=== PATIENT | female | born 1965 | race Caucasian/White ===

== ENCOUNTER → 2018-12-26 | Outpatient (CLI) | payer OTHER ==
[~2018-12-26] MED LIST: AMITRIPTYLINE H25 MG PO; ASPIRIN81 MG PO; ATENOLOL50 MG PO; CRESTOR10 MG PO; ESTRADIOL1 MG PO; GRALISE600 MG PO; LEVOTHYROXINE50 MCG PO; PANTOPRAZOLE SO40 MG PO; TRIAMTERENE/HCTZ PO; ULTRAM50 MG PO; ZOMIG2.5 MG PO; ZYRTEC10 M3 PO
[2018-12-26 10:47] LABS: ANION GAP 13.5 mmol/L (8-16); BLOOD UREA NITROGEN 11 mg/dL (7-26); BUN/CREATININE RATIO 13 (6-25); CALCIUM 9.4 mg/dL (8.4-10.2); CARBON DIOXIDE 29 mmol/L (22-29); CHLORIDE 98 mmol/L (98-107); CREATININE, SERUM 0.82 mg/dL (0.57-1.11); EST GLOMERULAR FILTRATION RATE > 60 ML/MIN (60-); GLUCOSE 95 mg/dL (74-118); POTASSIUM 3.5 mmol/L (3.5-5.1); SODIUM 137 mmol/L (136-145)
== END ==
LOC: RAD 05:00 → EDSTATUS 12-31 11:00
PROVIDERS: ATTEND Podiatrist Foot & Ankle Surgery
DX: Z01.810 Encounter for preprocedural cardiovascular examination (principal); Z01.812 Encounter for preprocedural laboratory examination; M77.51 Other enthesopathy of right foot and ankle
CPT/HCPCS: 36415; 80048; 93005

== ENCOUNTER → 2024-02-28 | Day surgery (SDC) | payer OTHER ==
[2024-02-25 09:42] LABS: INR 0.93; PROTHROMBIN TIME 12.9 seconds (11.9-14.5)
[2024-02-25 09:43] LABS: PARTIAL THROMBOPLASTIN TIME 28.5 seconds (23.8-35.5)
[2024-02-25 09:50] LABS: ANION GAP 15.9 mmol/L (8-16); CALCIUM 10.1 mg/dL (8.4-10.2); CREATININE, SERUM 1.02 mg/dL (0.57-1.11); POTASSIUM 3.9 mmol/L (3.5-5.1)
[~2024-02-28] MED LIST changes: +ALLEGRA ALLERGY60 MG PO; +ALPHA LIPOIC A100 MG; +ALPHA LIPOIC AC; +B-121000 MC2; +BACLOFEN20 MG PO; +BIOTIN1 MG; +BUPIVACAINE HCL 0.5% 10ML MPF VIAL INJ ONE; +COQ-10100 MG; +DEXAMETHASONE SOD PHOS INJ 4 MG/ML SDV ONE; +DHEA25 MG; +DIPHENHYDRAMINE HCL INJ 50 MG/ML VIAL ONE; +ESTROVEN CMPLT M4 MG; +FENTANYL CITRATE/PF 100MCG/2 ML INJ ONE; +FLONASE ALLERG9.9 ML INH; +FOLIC ACID0.8 MG PO; +GABAPENTIN600 MG PO; +GLUCOSAMIN-CHO1 EACH; +HYDROCODON-ACE1 EA12 PO; +KETOROLAC TROMETHAMINE 30 MG/ML VIAL ONE; +LIDOCAINE HCL 2% LOCAL INJ 5 ML SDV VIAL INJ ONE; +ONDANSETRON HCL INJ 2MG/ML 2ML 2 MG/ML VIAL ONE; +PROGESTERONE MI25 GM PO; +PROPOFOL IV EMULSION 10 MG/ML 20 ML VIAL ONE; +SEVOFLURANE INHAL SOLN 250 ML PEN BTL ONE; +TRIAMTERENE-HC1 EAC1 PO; +TUMERIC; +ZINC
[2024-02-28] MEDS: CEFAZOLIN SODIUM 2 GM ONE (07:27)
[2024-02-28] MEDS: LACTATED RINGER'S 1,000 ML ONE (07:29)
[2024-02-28 10:01] VITALS: TEMP 98.8
[2024-02-28 10:50] VITALS: BP 122/67; PULSE 51; RESP 16; O2SAT 96
== END | disposition home or self-care (01) ==
LOC: OR 06:26
PROVIDERS: ATTEND Neurological Surgery
DX: G56.02 Carpal tunnel syndrome, left upper limb (principal); M47.892 Other spondylosis, cervical region; I25.10 Atherosclerotic heart disease of native coronary artery without angina pectoris; E78.5 Hyperlipidemia, unspecified; I10 Essential (primary) hypertension; E66.9 Obesity, unspecified; E03.9 Hypothyroidism, unspecified; K21.9 Gastro-esophageal reflux disease without esophagitis; Z88.3 Allergy status to other anti-infective agents; Z01.810 Encounter for preprocedural cardiovascular examination; Z01.812 Encounter for preprocedural laboratory examination; Z79.82 Long term (current) use of aspirin; Z79.899 Other long term (current) drug therapy; Z68.37 Body mass index [BMI] 37.0-37.9, adult
CPT/HCPCS: 36415; 64721; 80048; 85610; 85730; 93005; J1100; J1200; J1885; J2001; J2405; J2704; J3010; J7121